=== PATIENT | male | born 1955 | race Caucasian/White ===

== ENCOUNTER 2017-09-14 17:35 | Emergency (ER) | payer OTHER ==
[~2017-09-14] VITALS: Ht 162.6 cm; Wt 58.5 kg
[2017-09-14 17:38] VITALS: BP 128/77; Ht 162.6 cm; Wt 58.5 kg
== END 2017-09-14 18:56 | disposition home or self-care (01) ==
LOC: ED 17:35
DX: Z48.01 Encounter for change or removal of surgical wound dressing (principal)

== ENCOUNTER 2017-10-22 20:24 | Emergency (ER) | payer OTHER ==
[2017-10-22 22:53] LABS: BASOPHIL % 0.3 % (0-2); PLATELET COUNT 163 x10^3mcL (130-400)
[2017-10-22 23:01] LABS: CALCIUM 9.6 mg/dL (8.5-10.1); CARBON DIOXIDE 31.9 mmol/L (21-32); CHLORIDE SERUM 101 mmol/L (98-107); CREATININE SERUM 0.5 mg/dL (0.7-1.3); GFR1 > 60 mL/min; GLUCOSE SERUM 106 mg/dL (74-106); POTASSIUM SERUM 3.6 mmol/L (3.5-5.1); SODIUM SERUM 140 mmol/L (136-145)
[2017-10-22 23:02] LABS: RED CELL DISTRIBUTION WIDTH 14.8 % (11.5-14.5)
[2017-10-22 23:06] LABS: ALBUMIN 4.2 g/dL (3.4-5.0); ALKALINE PHOSPHATASE 78 U/L (46-116); ALT/SGPT 28 U/L (16-63); AST/SGOT 29 U/L (15-37); BILIRUBIN TOTAL 0.46 mg/dL (0.20-1.00)
[2017-10-22 23:07] LABS: TOTAL PROTEIN, SERUM 8.4 g/dL (6.4-8.2)
[2017-10-23 01:01] VITALS: BP 125/78
== END 2017-10-23 01:01 | disposition home or self-care (01) ==
LOC: ED 20:24
PROVIDERS: Emergency Medicine
DX: G12.21 Amyotrophic lateral sclerosis (principal)
CPT/HCPCS: 83880; 87804; J2405; J2550; J7030; J7613; J7644; Q0092

== ENCOUNTER 2017-10-27 10:51 | Inpatient (IN) | payer OTHER ==
[~2017-10-27] VITALS: Ht 162.6 cm; Wt 52.7 kg
[2017-10-27 11:43] LABS: BASOPHIL % 0.4 % (0-2); PLATELET COUNT 171 x10^3mcL (130-400); RED CELL DISTRIBUTION WIDTH 14.1 % (11.5-14.5)
[2017-10-27 12:00] LABS: CALCIUM 9.2 mg/dL (8.5-10.1); CHLORIDE SERUM 99 mmol/L (98-107); CREATININE SERUM 0.7 mg/dL (0.7-1.3); GFR1 > 60 mL/min; GLUCOSE SERUM 220 mg/dL (74-106); POTASSIUM SERUM 3.5 mmol/L (3.5-5.1); SODIUM SERUM 138 mmol/L (136-145)
[2017-10-27 12:05] LABS: ALKALINE PHOSPHATASE 95 U/L (46-116); ALT/SGPT 34 U/L (16-63); AST/SGOT 35 U/L (15-37); BILIRUBIN TOTAL 0.5 mg/dL (0.20-1.00); TOTAL PROTEIN, SERUM 8.1 g/dL (6.4-8.2)
[2017-10-27 12:54] VITALS: BP 114/79
[2017-10-27 13:07] VITALS: Ht 162.6 cm; Wt 52.7 kg
[2017-10-27 13:10] LABS: CHOLESTEROL/HDL RATIO 2.9; MAGNESIUM 1.9 mg/dL (1.8-2.4); PHOSPHOROUS 3.9 mg/dL (2.5-4.9)
[2017-10-27 13:20] LABS: T3 TOTAL 0.96 ng/mL
[2017-10-27 13:21] LABS: FREE T4 1.1 ng/dL (0.76-1.46); FREE THYROXINE INDEX 2.8 ug/dL (1.4-4.5); T4(THYROXINE) 8.1 ug/dL (4.7-13.3)
[2017-10-27 17:05] VITALS: BP 127/91
[2017-10-27 20:46] VITALS: BP 127/86
[2017-10-28 04:29] VITALS: BP 125/79
[2017-10-28 08:03] LABS: CARBON DIOXIDE 33.5 mmol/L (21-32); CHLORIDE SERUM 102 mmol/L (98-107); CREATININE SERUM 0.5 mg/dL (0.7-1.3); GFR1 > 60 mL/min; GLUCOSE SERUM 111 mg/dL (74-106); MAGNESIUM 1.9 mg/dL (1.8-2.4); PHOSPHOROUS 3.7 mg/dL (2.5-4.9); POTASSIUM SERUM 3.3 mmol/L (3.5-5.1); SODIUM SERUM 143 mmol/L (136-145)
[2017-10-28 08:08] LABS: BASOPHIL % 0.5 % (0-2); PLATELET COUNT 153 x10^3mcL (130-400); RED CELL DISTRIBUTION WIDTH 14.6 % (11.5-14.5)
[2017-10-28 09:05] VITALS: BP 129/80
[2017-10-28 12:36] VITALS: BP 129/82
[2017-10-28 12:47] VITALS: BP 129/80
[2017-10-28 15:15] VITALS: BP 117/79
== END 2017-10-28 15:48 | disposition short-term general hospital (02) | DRG 42 ==
LOC: ED 10:51 → DU 12:03 → MU 10-28 12:26
PROVIDERS: Emergency Medicine; Family Medicine
DX: G12.21 Amyotrophic lateral sclerosis (principal); R13.10 Dysphagia, unspecified; K11.7 Disturbances of salivary secretion; R06.03 Acute respiratory distress
CPT/HCPCS: 36600; 83880; 84439; 94150; J7030; J7620; Q0092

== ENCOUNTER 2018-01-18 21:36 | Inpatient (IN) | payer OTHER ==
[~2018-01-18] VITALS: Ht 172.7 cm; Wt 56.2 kg
[2018-01-18 22:00] VITALS: BP 85/60
[2018-01-18 22:19] LABS: BASOPHIL % 0.1 % (0-2); RED CELL DISTRIBUTION WIDTH 14.5 % (11.5-14.5)
[2018-01-18 22:21] LABS: PLATELET COUNT 125 x10^3mcL (130-400)
[2018-01-18 22:30] LABS: CALCIUM 8.7 mg/dL (8.5-10.1); CHLORIDE SERUM 97 mmol/L (98-107); CREATININE SERUM 0.6 mg/dL (0.7-1.3); GFR1 > 60 mL/min; TOTAL PROTEIN, SERUM 7.5 g/dL (6.4-8.2)
[2018-01-18 22:48] LABS: ALKALINE PHOSPHATASE 127 U/L (46-116); ALT/SGPT 49 U/L (16-63); AST/SGOT 40 U/L (15-37); BILIRUBIN TOTAL 0.3 mg/dL (0.20-1.00); CARBON DIOXIDE 39.6 mmol/L (21-32); GLUCOSE SERUM 192 mg/dL (74-106); LIPASE 398 IU/L (73-393); SODIUM SERUM 137 mmol/L (136-145)
[2018-01-18 22:52] LABS: ALBUMIN 3.3 g/dL (3.4-5.0); POTASSIUM SERUM 6.5 mmol/L (3.5-5.1)
[2018-01-18 22:55] VITALS: BP 102/43
[2018-01-18 23:27] LABS: UA SPECIFIC GRAVITY 1.025 (1.005-1.035); microscopic required? YES; urine erythrocyte TRACE (NEGATIVE)
[2018-01-19] VITALS (21 sets, daily range): BP systolic 80–110; BP diastolic 47–513
[2018-01-19 00:57] LABS: CHOLESTEROL/HDL RATIO 2.3; PHOSPHOROUS 5.7 mg/dL (2.5-4.9)
[2018-01-19 01:06] LABS: FREE T4 0.72 ng/dL (0.76-1.46)
[2018-01-19 01:58] LABS: T3 TOTAL 0.76 ng/mL
[2018-01-19 04:39] LABS: BASOPHIL % 0.3 % (0-2); RED CELL DISTRIBUTION WIDTH 14.5 % (11.5-14.5)
[2018-01-19 04:42] LABS: PLATELET COUNT 99 x10^3mcL (130-400)
[2018-01-19 04:50] LABS: CALCIUM 8.6 mg/dL (8.5-10.1); CHLORIDE SERUM 104 mmol/L (98-107); CREATININE SERUM 0.6 mg/dL (0.7-1.3); GFR1 > 60 mL/min; GLUCOSE SERUM 135 mg/dL (74-106); PHOSPHOROUS 1.1 mg/dL (2.5-4.9); SODIUM SERUM 146 mmol/L (136-145)
[2018-01-19 04:53] LABS: CARBON DIOXIDE 40.6 mmol/L (21-32); POTASSIUM SERUM 2.9 mmol/L (3.5-5.1)
[2018-01-20] VITALS (16 sets, daily range): BP systolic 85–117; BP diastolic 48–70
[2018-01-20 05:33] LABS: BASOPHIL % 0.2 % (0-2)
[2018-01-20 05:36] LABS: PLATELET COUNT 84 x10^3mcL (130-400); RED CELL DISTRIBUTION WIDTH 14.6 % (11.5-14.5)
[2018-01-20 05:47] LABS: CALCIUM 7.4 mg/dL (8.5-10.1); CARBON DIOXIDE 34.1 mmol/L (21-32); CHLORIDE SERUM 104 mmol/L (98-107); CREATININE SERUM 0.7 mg/dL (0.7-1.3); GFR1 > 60 mL/min; GLUCOSE SERUM 153 mg/dL (74-106); MAGNESIUM 1.5 mg/dL (1.8-2.4); PHOSPHOROUS 3.3 mg/dL (2.5-4.9); SODIUM SERUM 144 mmol/L (136-145)
[2018-01-20 05:51] LABS: POTASSIUM SERUM 2.3 mmol/L (3.5-5.1)
[2018-01-20 10:33] LABS: CARBON DIOXIDE 36.3 mmol/L (21-32); CHLORIDE SERUM 102 mmol/L (98-107); CREATININE SERUM 0.8 mg/dL (0.7-1.3); GFR1 > 60 mL/min; GLUCOSE SERUM 188 mg/dL (74-106); SODIUM SERUM 143 mmol/L (136-145)
[2018-01-20 10:35] LABS: POTASSIUM SERUM 2.1 mmol/L (3.5-5.1)
[2018-01-20 22:00] LABS: CALCIUM 7.3 mg/dL (8.5-10.1); CARBON DIOXIDE 35.3 mmol/L (21-32); CHLORIDE SERUM 107 mmol/L (98-107); CREATININE SERUM 0.7 mg/dL (0.7-1.3); GFR1 > 60 mL/min; GLUCOSE SERUM 157 mg/dL (74-106); SODIUM SERUM 142 mmol/L (136-145)
[2018-01-20 22:07] LABS: POTASSIUM SERUM 2.4 mmol/L (3.5-5.1)
[2018-01-21] VITALS (18 sets, daily range): BP systolic 91–129; BP diastolic 52–80
[2018-01-21 06:08] LABS: CALCIUM 8.1 mg/dL (8.5-10.1); CARBON DIOXIDE 35.9 mmol/L (21-32); CHLORIDE SERUM 104 mmol/L (98-107); CREATININE SERUM 0.8 mg/dL (0.7-1.3); GFR1 > 60 mL/min; GLUCOSE SERUM 179 mg/dL (74-106); SODIUM SERUM 145 mmol/L (136-145)
[2018-01-21 06:21] LABS: POTASSIUM SERUM 2.6 mmol/L (3.5-5.1)
[2018-01-21 07:00] LABS: BASOPHIL % 0.2 % (0-2); RED CELL DISTRIBUTION WIDTH 14.4 % (11.5-14.5)
[2018-01-21 07:11] LABS: PLATELET COUNT 97 x10^3mcL (130-400)
[2018-01-21 17:18] LABS: CALCIUM 7.4 mg/dL (8.5-10.1); CARBON DIOXIDE 32.5 mmol/L (21-32); CHLORIDE SERUM 105 mmol/L (98-107); CREATININE SERUM 0.6 mg/dL (0.7-1.3); GFR1 > 60 mL/min; GLUCOSE SERUM 173 mg/dL (74-106); POTASSIUM SERUM 3.1 mmol/L (3.5-5.1); SODIUM SERUM 139 mmol/L (136-145)
[2018-01-22] VITALS (18 sets, daily range): BP systolic 93–130; BP diastolic 52–76
[2018-01-22 05:22] LABS: BASOPHIL % 0.2 % (0-2); RED CELL DISTRIBUTION WIDTH 14.2 % (11.5-14.5)
[2018-01-22 05:33] LABS: PLATELET COUNT 95 x10^3mcL (130-400)
[2018-01-22 05:35] LABS: CALCIUM 8.3 mg/dL (8.5-10.1); CHLORIDE SERUM 105 mmol/L (98-107); CREATININE SERUM 0.6 mg/dL (0.7-1.3); GFR1 > 60 mL/min; GLUCOSE SERUM 144 mg/dL (74-106); MAGNESIUM 1.7 mg/dL (1.8-2.4); PHOSPHOROUS 3.3 mg/dL (2.5-4.9); SODIUM SERUM 144 mmol/L (136-145)
[2018-01-22 05:36] LABS: POTASSIUM SERUM 2.7 mmol/L (3.5-5.1)
[2018-01-23] VITALS (19 sets, daily range): BP systolic 100–150; BP diastolic 43–95
[2018-01-23 05:22] LABS: BASOPHIL % 0.4 % (0-2); RED CELL DISTRIBUTION WIDTH 13.7 % (11.5-14.5)
[2018-01-23 05:28] LABS: PLATELET COUNT 104 x10^3mcL (130-400)
[2018-01-23 05:36] LABS: CALCIUM 8.2 mg/dL (8.5-10.1); CARBON DIOXIDE 30.1 mmol/L (21-32); CHLORIDE SERUM 105 mmol/L (98-107); CREATININE SERUM 0.6 mg/dL (0.7-1.3); GFR1 > 60 mL/min; GLUCOSE SERUM 175 mg/dL (74-106); MAGNESIUM 1.6 mg/dL (1.8-2.4); PHOSPHOROUS 3.2 mg/dL (2.5-4.9); POTASSIUM SERUM 3.1 mmol/L (3.5-5.1); SODIUM SERUM 141 mmol/L (136-145)
[2018-01-24] VITALS (17 sets, daily range): BP systolic 93–134; BP diastolic 61–87
[2018-01-24 05:26] LABS: BASOPHIL % 0.3 % (0-2); PLATELET COUNT 145 x10^3mcL (130-400); RED CELL DISTRIBUTION WIDTH 13.6 % (11.5-14.5)
[2018-01-24 05:29] LABS: CALCIUM 7.8 mg/dL (8.5-10.1); CARBON DIOXIDE 34.8 mmol/L (21-32); CHLORIDE SERUM 103 mmol/L (98-107); CREATININE SERUM 0.5 mg/dL (0.7-1.3); GFR1 > 60 mL/min; GLUCOSE SERUM 120 mg/dL (74-106); MAGNESIUM 1.6 mg/dL (1.8-2.4); PHOSPHOROUS 3.5 mg/dL (2.5-4.9); POTASSIUM SERUM 3.3 mmol/L (3.5-5.1); SODIUM SERUM 140 mmol/L (136-145)
[2018-01-24 05:35] LABS: ALBUMIN 2.3 g/dL (3.4-5.0)
[2018-01-25] VITALS (16 sets, daily range): BP systolic 97–117; BP diastolic 63–83
[2018-01-25 05:37] LABS: BASOPHIL % 0.5 % (0-2); PLATELET COUNT 182 x10^3mcL (130-400); RED CELL DISTRIBUTION WIDTH 12.7 % (11.5-14.5)
[2018-01-25 05:50] LABS: CALCIUM 8.7 mg/dL (8.5-10.1); CARBON DIOXIDE 30.8 mmol/L (21-32); CHLORIDE SERUM 102 mmol/L (98-107); CREATININE SERUM 0.5 mg/dL (0.7-1.3); GFR1 > 60 mL/min; GLUCOSE SERUM 100 mg/dL (74-106); MAGNESIUM 1.7 mg/dL (1.8-2.4); PHOSPHOROUS 3.4 mg/dL (2.5-4.9); POTASSIUM SERUM 3.6 mmol/L (3.5-5.1); SODIUM SERUM 141 mmol/L (136-145)
[2018-01-25 05:53] LABS: ALBUMIN 2.5 g/dL (3.4-5.0)
[2018-01-26] VITALS (18 sets, daily range): BP systolic 95–125; BP diastolic 51–84
[2018-01-26 05:03] LABS: BASOPHIL % 0.3 % (0-2); PLATELET COUNT 194 x10^3mcL (130-400); RED CELL DISTRIBUTION WIDTH 13.5 % (11.5-14.5)
[2018-01-26 05:17] LABS: CALCIUM 8.7 mg/dL (8.5-10.1); CARBON DIOXIDE 30.5 mmol/L (21-32); CHLORIDE SERUM 103 mmol/L (98-107); CREATININE SERUM 0.5 mg/dL (0.7-1.3); GFR1 > 60 mL/min; GLUCOSE SERUM 112 mg/dL (74-106); MAGNESIUM 1.9 mg/dL (1.8-2.4); PHOSPHOROUS 3.2 mg/dL (2.5-4.9); POTASSIUM SERUM 3.8 mmol/L (3.5-5.1); SODIUM SERUM 134 mmol/L (136-145)
[2018-01-26 05:18] LABS: ALBUMIN 2.6 g/dL (3.4-5.0)
[2018-01-27] VITALS (18 sets, daily range): BP systolic 100–164; BP diastolic 63–92
[2018-01-27 05:11] LABS: BASOPHIL % 0.6 % (0-2); PLATELET COUNT 213 x10^3mcL (130-400); RED CELL DISTRIBUTION WIDTH 13.7 % (11.5-14.5)
[2018-01-27 05:25] LABS: CALCIUM 8.5 mg/dL (8.5-10.1); CARBON DIOXIDE 26.8 mmol/L (21-32); CHLORIDE SERUM 106 mmol/L (98-107); CREATININE SERUM 0.5 mg/dL (0.7-1.3); GFR1 > 60 mL/min; GLUCOSE SERUM 112 mg/dL (74-106); MAGNESIUM 1.8 mg/dL (1.8-2.4); PHOSPHOROUS 3.6 mg/dL (2.5-4.9); SODIUM SERUM 141 mmol/L (136-145)
[2018-01-28] VITALS (18 sets, daily range): BP systolic 88–143; BP diastolic 54–89
[2018-01-28 05:59] LABS: CALCIUM 8.9 mg/dL (8.5-10.1); CARBON DIOXIDE 28.4 mmol/L (21-32); CHLORIDE SERUM 105 mmol/L (98-107); CREATININE SERUM 0.5 mg/dL (0.7-1.3); GFR1 > 60 mL/min; GLUCOSE SERUM 123 mg/dL (74-106); MAGNESIUM 1.7 mg/dL (1.8-2.4); PHOSPHOROUS 3.5 mg/dL (2.5-4.9); POTASSIUM SERUM 3.7 mmol/L (3.5-5.1); SODIUM SERUM 142 mmol/L (136-145)
[2018-01-28 06:10] LABS: BASOPHIL % 0.2 % (0-2); PLATELET COUNT 250 x10^3mcL (130-400); RED CELL DISTRIBUTION WIDTH 13.8 % (11.5-14.5)
[2018-01-29] VITALS (18 sets, daily range): BP systolic 85–137; BP diastolic 48–82
[2018-01-29 05:06] LABS: CALCIUM 8.4 mg/dL (8.5-10.1); CARBON DIOXIDE 28.3 mmol/L (21-32); CHLORIDE SERUM 106 mmol/L (98-107); CREATININE SERUM 0.5 mg/dL (0.7-1.3); GFR1 > 60 mL/min; GLUCOSE SERUM 110 mg/dL (74-106); MAGNESIUM 1.9 mg/dL (1.8-2.4); PHOSPHOROUS 3.7 mg/dL (2.5-4.9); POTASSIUM SERUM 4.2 mmol/L (3.5-5.1); SODIUM SERUM 139 mmol/L (136-145)
[2018-01-29 05:10] LABS: BASOPHIL % 0.3 % (0-2); PLATELET COUNT 247 x10^3mcL (130-400); RED CELL DISTRIBUTION WIDTH 13.7 % (11.5-14.5)
[2018-01-30] VITALS (18 sets, daily range): BP systolic 89–136; BP diastolic 55–89; Ht 172.7 cm; Wt 56.2 kg
[2018-01-30 05:12] LABS: BASOPHIL % 0.4 % (0-2); PLATELET COUNT 260 x10^3mcL (130-400); RED CELL DISTRIBUTION WIDTH 13.8 % (11.5-14.5)
[2018-01-30 05:22] LABS: CALCIUM 8.7 mg/dL (8.5-10.1); CARBON DIOXIDE 28.2 mmol/L (21-32); CHLORIDE SERUM 106 mmol/L (98-107); CREATININE SERUM 0.5 mg/dL (0.7-1.3); GFR1 > 60 mL/min; GLUCOSE SERUM 97 mg/dL (74-106); MAGNESIUM 1.8 mg/dL (1.8-2.4); PHOSPHOROUS 3.8 mg/dL (2.5-4.9); SODIUM SERUM 137 mmol/L (136-145)
[2018-01-30 05:37] LABS: ALBUMIN 2.7 g/dL (3.4-5.0)
[2018-01-31] VITALS (14 sets, daily range): BP systolic 84–132; BP diastolic 56–80
[2018-01-31 05:58] LABS: BASOPHIL % 0.5 % (0-2); PLATELET COUNT 258 x10^3mcL (130-400); RED CELL DISTRIBUTION WIDTH 13.8 % (11.5-14.5)
[2018-01-31 06:18] LABS: CALCIUM 8.4 mg/dL (8.5-10.1); CARBON DIOXIDE 27.5 mmol/L (21-32); CHLORIDE SERUM 104 mmol/L (98-107); CREATININE SERUM 0.5 mg/dL (0.7-1.3); GFR1 > 60 mL/min; GLUCOSE SERUM 107 mg/dL (74-106); MAGNESIUM 1.8 mg/dL (1.8-2.4); PHOSPHOROUS 4.2 mg/dL (2.5-4.9); POTASSIUM SERUM 4.1 mmol/L (3.5-5.1); SODIUM SERUM 137 mmol/L (136-145)
[2018-01-31] MEDS ORDERED: PROT40I IV (11:36)
[2018-01-31] MEDS ORDERED: HUMULIN R100 U/1 M1 SC (11:36)
[2018-01-31] MEDS ORDERED: ZOFI IV (11:36)
[2018-01-31] MEDS ORDERED: SYN5 NG (11:37)
[2018-01-31] MEDS ORDERED: TOR30I IV (11:37)
== END 2018-01-31 15:42 | DRG 4 ==
LOC: ED 21:36 → IC 23:03
PROVIDERS: Emergency Medicine; Family Medicine
PROC: 5A1955Z Respiratory Ventilation, Greater than 96 Consecutive Hours (ICD-10-PCS; principal; 2018-01-18)
PROC: 0BH17EZ Insertion of Endotracheal Airway into Trachea, Via Natural or Artificial Opening (ICD-10-PCS; 2018-01-18)
PROC: 0BH17EZ Insertion of Endotracheal Airway into Trachea, Via Natural or Artificial Opening (ICD-10-PCS; 2018-01-27)
PROC: 5A1945Z Respiratory Ventilation, 24-96 Consecutive Hours (ICD-10-PCS; 2018-01-27)
PROC: 0B110F4 Bypass Trachea to Cutaneous with Tracheostomy Device, Open Approach (ICD-10-PCS; 2018-01-29)
DX: A41.9 Sepsis, unspecified organism (principal); J96.01 Acute respiratory failure with hypoxia; J69.0 Pneumonitis due to inhalation of food and vomit; G92 Toxic encephalopathy; N17.0 Acute kidney failure with tubular necrosis; J96.02 Acute respiratory failure with hypercapnia; I21.A1 Myocardial infarction type 2; E43 Unspecified severe protein-calorie malnutrition; G12.21 Amyotrophic lateral sclerosis; J90 Pleural effusion, not elsewhere classified; R65.20 Severe sepsis without septic shock; E87.5 Hyperkalemia; E11.9 Type 2 diabetes mellitus without complications; E87.6 Hypokalemia; E83.42 Hypomagnesemia; R13.10 Dysphagia, unspecified; E03.9 Hypothyroidism, unspecified; D69.6 Thrombocytopenia, unspecified; E83.39 Other disorders of phosphorus metabolism; Z93.1 Gastrostomy status; Z87.891 Personal history of nicotine dependence; Z68.22 Body mass index [BMI] 22.0-22.9, adult
CPT/HCPCS: 36600; 83880; 84439; A4628; C9113; J0330; J0690; J0696; J1644; J1815; J1885; J1940; J2060; J2270; J2405; J2543; J3010; J3370; J3475; J3480; J3490; J7030; J7050; J7120; J7613; J7620; Q0092; Q9967